=== PATIENT | male | born 1950 ===

== ENCOUNTER 2017-02-11 05:35 | Day surgery (SDC) | payer MEDICARE, BC ==
[~2017-02-11] VITALS: Ht 180.3 cm; Wt 79.3 kg
[2017-02-11 06:31] VITALS: BP 168/82; PULSE 53; TEMP 97.8
[2017-02-11 08:34] VITALS: BP 136/70; PULSE 48; TEMP 97.2
[2017-02-11] MEDS ORDERED: NORCO 325 MG-7.1 TAB PO (08:34)
[2017-02-11 08:50] VITALS: BP 148/75; PULSE 46
[2017-02-11 09:05] VITALS: BP 165/74; PULSE 42
[2017-02-11 09:20] VITALS: BP 175/83; PULSE 43
== END 2017-02-11 09:30 | disposition home or self-care (01) ==
LOC: SDCO 05:35
DX: K40.90 Unilateral inguinal hernia, without obstruction or gangrene, not specified as recurrent (principal)
CPT/HCPCS: C1781; J0690; J2250; J2405; J2704; J3010; J7120

== ENCOUNTER 2020-02-01 07:18 | Day surgery (SDC) | payer MEDICARE, BC ==
[2020-02-01] VITALS (8 sets, daily range): BP systolic 118–145; BP diastolic 57–65; PULSE 50–79; TEMP 97.6–97.8
[~2020-02-01] VITALS: Ht 180.3 cm; Wt 68.8 kg
[~2020-02-01 07:18] MED LIST: NORCO 325 MG-7.1 TAB PO
[2020-02-01] MEDS ORDERED: NORCO 325 MG-51 TAB PO (10:55)
--- NOTE | 2020-02-01 11:45 | NUR ---
Patient returns to room 7 per cart from PACU accompanied by Hellen HINTON and is awake and alert. IV fluids infusing and site is free of redness. Bandaids x3 dry and scrotal support in place. Denies pain or nausea. Temp 97.2. Siderails up x2 and call light in reach. Allowed to rest.
--- NOTE | 2020-02-01 12:00 | NUR ---
Continues to rest without pain or nausea.
--- NOTE | 2020-02-01 12:15 | NUR ---
Drinking water. Room air sats 100%. Offers no complaints of pain or nausea.
--- NOTE | 2020-02-01 12:30 | NUR ---
Denies need for pain medications. Resting when not disturbed.
--- NOTE | 2020-02-01 12:45 | NUR ---
Eating muffin and drinking water.
--- NOTE | 2020-02-01 13:15 | NUR ---
Tolerated muffin and denies nausea. IV to INT and assisted up to the bathroom and is able to void and returns to room. Tolerates activity well. INT needle discontinued and site is free of redness. Daughter notified for ride home. States that the incisional areas are becoming more sore.
--- NOTE | 2020-02-01 13:30 | NUR ---
Patient dressed and ready for discharge. Bandaids on incisions x3 dry. Scrotal support in place.
--- NOTE | 2020-02-01 13:45 | NUR ---
Was medicated with [place] 5mg tab prior to discharge. States that he has an hour car ride home. Provided script for [place] and dismissal instructions given. Patient dismissed to home driven by daughter and taken to the front door per wheelchair by this RN and assisted into car with instructions in hand.
== END 2020-02-01 15:45 | disposition home or self-care (01) ==
LOC: SDCO
DX: K40.91 Unilateral inguinal hernia, without obstruction or gangrene, recurrent (principal)
CPT/HCPCS: C1781; J0330; J0360; J1100; J1885; J2405; J2704; J3010; J7120

== ENCOUNTER 2020-05-15 12:31 | Day surgery (SDC) | payer MEDICARE, BC ==
[~2020-05-15] VITALS: Ht 180.3 cm; Wt 70.2 kg
[2020-05-15 12:53] VITALS: BP 137/68; PULSE 52; TEMP 98.3
[2020-05-15] MEDS ORDERED: NORCO 325 MG-51 TAB PO (15:10)
[2020-05-15 15:11] VITALS: BP 125/70; PULSE 50; TEMP 97.4
--- NOTE | 2020-05-15 15:11 | NUR ---
The patient arrived back to [facility] from the operating room at this time. The patient appears alert and oriented and denies any pain or nausea at this time. The patient's post operative vital signs were started at this time. The patient's port a catheter to his left chest is accessed and covered with a tegaderm and appears without redness or edema. The patient agrees to try some hot tea at this time. Call light is within reach. Will continue to monitor the patient.
[2020-05-15 15:26] VITALS: BP 140/70; PULSE 50
--- NOTE | 2020-05-15 15:26 | NUR ---
The patient appears to be tolerating the tea well. Vital signs appear stable. Will continue to monitor the patient.
[2020-05-15 15:45] VITALS: BP 143/71; PULSE 47
--- NOTE | 2020-05-15 15:45 | NUR ---
The patient has drank his tea and appeared to tolerate it well. The patient voices a desire to be discharged home. Discharge instructions were reviewed with the patient at this time. He verbalized understanding and has no questions for the nurse at this time. The patient's IV to his right wrist was removed and a pressure dressing was applied to the site. The nurse instructed the patient to get dressed and notify the staff when he is ready to be escorted out.
--- NOTE | 2020-05-15 15:50 | NUR ---
The patient's daughter was called to notify her he is ready for discharge. She verbalized understanding and his going to head towards the hospital to pick him up.
--- NOTE | 2020-05-15 16:05 | NUR ---
The patient was escorted out via wheelchair to a private vehicle by Marky Cote RN. The patient's belongings and discharge paperwork were sent with him. The patient's daughter is present to drive him home.
== END 2020-05-15 16:05 | disposition home or self-care (01) ==
LOC: SDCO 12:31
DX: C20 Malignant neoplasm of rectum (principal)
CPT/HCPCS: C1788; J0690; J1644; J2250; J2704; J7120

== ENCOUNTER → 2020-05-15 | Outpatient (CLI) | payer MEDICARE, BC ==
[~2020-05-15] MED LIST changes: +NORCO 325 MG-51 TAB PO
== END ==
LOC: COL.LAB 13:20
DX: C20 Malignant neoplasm of rectum (principal)